=== PATIENT | female | born 1980 | race Caucasian/White ===

== ENCOUNTER 2019-10-03 09:36 | Emergency (ER) | payer SELFPAY ==
[2019-10-03] MEDS ORDERED: HYDROcodone 5MG/APAP 325MG 1 EA TAB PO ONE (09:46)
--- NOTE | 2019-10-03 09:47 | ED.PDOC ---
History of Present Illness - General Chief Complaint: Trauma Time Seen by Provider: 10/03/19 09:37 Source: patient Exam Limitations: no limitations - History of Present Illness Initial Comments: 38 F +pmh hypothyroidism presents via EMS with father to ED c/o acute right ankle pain s/p mechanical fall last night. Pt informs that she stood up too quickly from the toilet while trying to pull her pants up and hold her walker; thus causing her to lose her balance and fall over. She denies head, neck, back injury/pain as well as denying loss of consciousness. She has been on Synthroid for ~90 days but has stopped over the last 7 days due to side effect of generalized symmetric BLE weakness; since cessation her weakness has improved. She endorses associated swelling and bruising to her right ankle with pain being greatest at medial malleolus. She denies any proceeding symptoms to her fall up to and including CP, SOB, dizziness/lightheadedness, palpitations. She is otherwise healthy with no other signs, symptoms, or complaints. Allergies/Adverse Reactions: Allergies Codeine Allergy (Verified 10/03/19 09:44) Sulfa Antibiotics Allergy (Verified 10/03/19 09:44) Home Medications: Ambulatory Orders Tramadol HCl [Ultram] 50 mg PO TID #14 tab 10/03/19 Review of Systems - Review of Systems Constitutional: Denies: chills, fever Respiratory: Denies: cough, short of breath Cardiology: Denies: chest pain, palpitations Gastrointestinal/Abdominal: Denies: abdominal pain, diarrhea, nausea, vomiting Musculoskeletal: States: joint pain, joint swelling. Denies: back pain, muscle pain, neck pain Skin: States: other - right medial ankle swelling and bruising. Denies: lesions Neurological: States: weakness, other - weakness present prior to injury and improving. Denies: numbness, paresthesia Past Medical History (General) - Patient Medical History Hx Thyroid Disease: Yes - hypothyroidism on levothyroxin (self-stopped since 09/26/2019) Surgical History: noncontributory - Social History Hx Tobacco Use: No Hx Alcohol Use: No Hx Substance Use: No Family Medical History - Family History Father Family History: No Known Physical Exam - Physical Exam General Appearance: Alert, Comfortable, No apparent distress, Well Nourished Eye Exam: bilateral normal, bilateral other - no scleral icterus, conjunctiva wnl bilaterally Ears, Nose, Throat: other - moist oral mucosa Respiratory: chest non-tender, lungs clear, normal breath sounds, no respiratory distress, no accessory muscle use Cardiovascular/Chest: normal peripheral pulses - BLE DP/PT pulses 2+ with good capillary refill <2 seconds, regular rate, rhythm, no edema, no JVD, no murmur Peripheral Pulses: dorsalis pedis,right: 2+, dorsalis pedis,left: 2+, posterior tibialis,right: 2+, posterior tibialis,left: 2+ Gastrointestinal/Abdominal: normal bowel sounds, soft Back Exam: no CVA tenderness, no vertebral tenderness Extremity: other - RLE - ankle: negative anterior/posterior drawer. + TTP greatest to medial malleolus with associated swelling and ecchymosis. Skin is closed with no abrasions/lacerations. Compartents soft. ROM in ankle guarded due to pain but remains intact. No deformity. Strength/motor 5/5 with intact sensation. No TTP to mid or proximal tibia/fibula. No TTP or injury to knee. Neurologic: alert, normal mood/affect, oriented x 3 Skin Exam: normal color, warm/dry, other - mild swelling and ecchymosis to right medial malleolus Progress - Progress Progress: 10/03/19 09:57 Presents with concern for fracture of right ankle. I will obtain x-ray, provide norco for analgesic pain relief (pt requests nothing strong mentioning morphine by name), and continue to monitor/reassess. Disposition will depend on imaging and overall ED course; however, discharge home with orthopedic vs PCP f/u, education/instructions, and likely prescription is expected. 10/03/19 10:17 @1014: ED physician read of Right Ankle X-ray: unstable bimalleolar vs trimalleolar fracture with mild displacement and comminution. @1016: On-call Orthopedic surgeon has been paged. 10/03/19 10:27 10/03/19 10:42 @1041: I have consulted with Dr. Humphreys, discussed pt's case in ED along with current findings. He agrees to have pt splinted in ED and sent to his clinic so that pt can be scheduled for outpatient operative management. 10/03/19 12:23 Patients splint placed and post splint placement x-rays show joint reduction with improvement. Pt's pain is improved and she is being discharged at this time. Pt is proceeding to Dr. Humphreys's office for evaluation and further management. - EKG/XRAY/CT XRAY: ankle - Radiologist read reviewed: "Impression: Trimalleolar right ankle fracture/subluxation" Procedures - Splinting Right Ankle Hand-Made Type: orthoglass Splint: Posterior short leg with stirrup splint Pre-Proc Neuro Vasc Exam: normal Post-Proc Neuro Vasc Exam: normal Progress: Pt tolerated well without complication. No sedation necessary. Pain controlled with 75mcg IM Fentanyl x1 dose. Neurovascularly intact distally s/p procedure. Splint visualized well on imaging. Departure - Departure Clinical Impression: Closed trimalleolar fracture of right ankle, History of hypothyroidism Time of Disposition: 11:59 Disposition: Discharge to Home or Self Care Condition: Fair Departure Forms: ED Discharge - Pt. Copy, Patient Portal Self Enrollment Instructions: DI for Trauma, Ankle Fracture (DC) Diet: resume usual diet Activity: other - No weight bearing on right leg. Use wheelchair due to weakness. Referrals: Suleman Humphreys MD [Active Staff] - 1-2 Days Prescriptions: Tramadol HCl [Ultram] 50 mg PO TID #14 tab Home Medications: Ambulatory Orders Tramadol HCl [Ultram] 50 mg PO TID #14 tab 10/03/19
[2019-10-03 09:56] VITALS: TEMP 97.8
--- NOTE | 2019-10-03 10:20 | RAD ---
EXAM DESCRIPTION: Ankle,Right 3 Views CLINICAL HISTORY: 38 years Female, fall, localized trauma COMPARISON: None. FINDINGS: Three views of the right ankle show medial and lateral malleolar fractures with up to one half shaft width lateral placement at both fracture sites. Lateral subluxation of the tibiotalar joint. Tiny nondisplaced posterior malleolar fracture. The calcaneus and subtalar joint are intact. IMPRESSION: Trimalleolar right ankle fracture/subluxation as detailed above. Electronically signed by: Mino Maria MD 10/03/2019 10:19 AM [facility]
[2019-10-03] MEDS ORDERED: fentaNYL CITRATE INJ 50 MCG/ML AMP IM ONE (11:04)
--- NOTE | 2019-10-03 12:14 | RAD ---
Study: Three views of the Right Ankle. Indication: post splint placement Comparison: October 03, 2019 Impression: Distal fibular and tibial fractures redemonstrated with slightly improved alignment postreduction and splinting. Extensive soft tissue swelling noted. Talar dome intact. Electronically signed by: Viktor Espinoza MD 10/03/2019 12:12 PM [facility]
[2019-10-03 12:40] VITALS: BP 119/92; O2SAT 97
== END 2019-10-03 12:14 | disposition home or self-care (01) ==
LOC: ER 09:36
DX: S82.851A Displaced trimalleolar fracture of right lower leg, initial encounter for closed fracture (principal); E03.9 Hypothyroidism, unspecified; W18.30XA Fall on same level, unspecified, initial encounter; Z88.5 Allergy status to narcotic agent; Z88.2 Allergy status to sulfonamides; Y92.9 Unspecified place or not applicable
CPT/HCPCS: 73610; J3010